=== PATIENT | female | born 1980 | race Caucasian/White ===

== ENCOUNTER → 2020-12-16 | Outpatient (CLI) | payer OTHER ==
[~2020-12-16] MED LIST: IBU800 MG PO; KEFLEX CAP 500500 MG PO; OMEPRAZOLE20 MG PO; OMNICEF 300 MG300 MG PO; PERCOCET 5/325 T1 EA PO; VITAMIN C500 M1 PO; VITAMIN D350000 UNIT PO; ZOFRAN ODT 4 MG4 MG PO; ZOFRAN4 MG PO
== END ==
LOC: RAD 12:49
DX: S20.212A Contusion of left front wall of thorax, initial encounter (principal); S40.012A Contusion of left shoulder, initial encounter; W17.89XA Other fall from one level to another, initial encounter
CPT/HCPCS: 71046

== ENCOUNTER → 2022-05-17 | Outpatient (CLI) | payer OTHER ==
[2022-05-19 08:13] LABS: HIV AB/P24 AG SCREEN Non Reactive (Non Reactive)
== END ==
LOC: LAB 15:47
PROVIDERS: Emergency Medicine
DX: Z11.3 Encounter for screening for infections with a predominantly sexual mode of transmission (principal); F41.1 Generalized anxiety disorder; F33.2 Major depressive disorder, recurrent severe without psychotic features; G47.01 Insomnia due to medical condition
CPT/HCPCS: 36415; 86695; 86696; 87389